=== PATIENT | male | born 1965 | race Caucasian/White ===

== ENCOUNTER 2017-06-09 13:46 | Emergency (ER) | payer BC ==
--- NOTE | 2017-06-09 14:27 | ER Document Report ---
ED Medical Screen (RME) - General Chief Complaint: Chest Pain > 30 Stated Complaint: CHEST DISCOMFORT,SHORTNESS OF BREATH Time Seen by Provider: 06/09/17 14:16 Notes: This 51-year-old male patient comes emergency room complaining of chest discomfort, shortness of breath worse with exertion, and elevated blood pressure. He reports onset last Thursday 1 week ago of waking up with sore throat, congestion, sinus discomfort, and some shortness of breath. He saw his primary care provider to have blood work done. He went back today for follow-up and was found to have elevated blood pressure and worsening shortness of breath so he referred to the emergency room. He states his normal blood pressure is in the 140-145/92 range, but it has been running higher recently. He has been taking DayQuil and NyQuil, but none in the last 2 days. Patient denies any lower extremity swelling. He does have a chest x-ray from today and a comparison on a CD with him. I have greeted and performed a rapid initial assessment of this patient. A comprehensive ED assessment and evaluation of the patient, analysis of test results and completion of the medical decision making process will be conducted by additional ED providers. TRAVEL OUTSIDE OF THE [place] IN LAST 30 DAYS: No - Related Data Allergies/Adverse Reactions: No Known Allergies Allergy (Unverified 06/09/17 14:07) Home Medications: Current Home Medications Albuterol Sulfate [Proair Respiclick] 90 mcg IH PRN PRN 06/09/17 [History] Cetirizine HCl [Zyrtec 10 mg Tablet] 1 tab PO DAILY 06/09/17 [History] Fluticasone Propionate [Flovent Diskus] 50 mcg IH DAILY 06/09/17 [History] Hydrochlorothiazide 50 mg PO DAILY 06/09/17 [History] Past Medical History - Social History Chew tobacco use (# tins/day): Yes Frequency of alcohol use: Social Drug Abuse: None Renal/ Medical History: Denies: Hx Peritoneal Dialysis Physical Exam - Vital signs Vitals: Temp Pulse Resp BP Pulse Ox 99.0 F 116 H 18 158/92 H 96 06/09/17 14:01 06/09/17 14:01 06/09/17 14:01 06/09/17 14:01 06/09/17 14:01 Course - Vital Signs Vital signs: Temp Pulse Resp BP Pulse Ox 99.0 F 116 H 18 158/92 H 96 06/09/17 14:01 06/09/17 14:01 06/09/17 14:01 06/09/17 14:01 06/09/17 14:01
[2017-06-09 14:54] LABS: ABSOLUTE BASOPHILS # (AUTO) 0.1 10^3/uL (0.0-0.2); ABSOLUTE EOSINOPHILS # (AUTO) 0.1 10^3/uL (0.0-0.6); ABSOLUTE LYMPHOCYTES (AUTO) 1.5 10^3/uL (0.5-4.7); ABSOLUTE MONOCYTES (AUTO) 0.5 10^3/uL (0.1-1.4); ABSOLUTE NEUT (AUTO) 5.6 10^3/uL (1.7-8.2); BASOPHILS % (AUTO) 0.7 % (0-2); EOSINOPHILS % (AUTO) 1.2 % (0-6); HEMATOCRIT 51.7 % (37.9-51.0); HEMOGLOBIN 17.5 g/dL (13.5-17.0); HGB HCT DIFFERENCE 0.8; LYMPHOCYTES % (AUTO) 19.6 % (13-45); MEAN CORPUSCULAR HEMOGLOBIN 28.2 pg (27.0-33.4); MEAN CORPUSCULAR HGB CONC 33.9 g/dL (32.0-36.0); MEAN CORPUSCULAR VOLUME 83 fl (80-97); MONOCYTES % (AUTO) 6.8 % (3-13); RED CELL DISTRIBUTION WIDTH 15.1 % (11.5-14.0); SEGMENTED NEUTROPHILS % (AUTO) 71.7 % (42-78); WHITE BLOOD COUNT 7.8 10^3/uL (4.0-10.5)
[2017-06-09 14:55] LABS: APPEARANCE,URINE CLEAR; BILIRUBIN,URINE NEGATIVE (NEGATIVE); GLUCOSE, URINE NEGATIVE (NEGATIVE); KETONES,URINE NEGATIVE (NEGATIVE); LEUKOCYTE ESTERASE,URINE NEGATIVE (NEGATIVE); NITRITE,URINE NEGATIVE (NEGATIVE); PROTEIN,URINE NEGATIVE (NEGATIVE); URINE SPECIFIC GRAVITY 1.004; UROBILINOGEN,URINE NEGATIVE mg/dL (<2.0)
[2017-06-09 15:15] LABS: ALANINE AMINOTRANSFERASE 47 U/L (21-72); ALKALINE PHOSPHATASE 67 U/L (38-126); ANION GAP 11 (5-19); ASPARTATE AMINO TRANSFERASE 27 U/L (17-59); BILIRUBIN,DIRECT 0.5 mg/dL (0.0-0.4); BILIRUBIN,TOTAL 0.9 mg/dL (0.2-1.3); BLOOD UREA NITROGEN 12 mg/dL (7-20); CALCIUM 10.2 mg/dL (8.4-10.2); CARBON DIOXIDE 26 mmol/L (22-30); CHLORIDE 104 mmol/L (98-107); CREATINE KINASE 133 U/L (55-170); CREATININE RESULT 1.11 mg/dL (0.52-1.25); GLUCOSE 142 mg/dL (75-110); POTASSIUM 3.5 mmol/L (3.6-5.0); SODIUM 141.4 mmol/L (137-145); TOTAL PROTEIN 6.8 g/dL (6.3-8.2)
[2017-06-09 15:27] LABS: CREATINE KINASE MB 1.07 ng/mL (<4.55)
[2017-06-09 15:29] LABS: TROPONIN I < 0.012 ng/mL
--- NOTE | 2017-06-09 21:20 | ER Document Report ---
ED General - General Chief Complaint: Chest Pain > 30 Stated Complaint: CHEST DISCOMFORT,SHORTNESS OF BREATH Time Seen by Provider: 06/09/17 14:16 TRAVEL OUTSIDE OF THE [place] IN LAST 30 DAYS: No - HPI Notes: Patient is a 51-year-old male with a history of hypertension and GERD who presents the ED complaining of feeling short of breath and intermittent chest pressure more so over the last 2 days, but did have a URI illness last week. Patient states that he is ambulatory without any worsening symptoms or dyspnea on exertion. Patient states that the discomfort does not radiate and is located to the left side of the chest primarily. Pt denies any prolonged travel , calf pain, immobilization, recent trauma/surgery, hormone use, smoking, DM, CA , prev h/o DVT/PE. Patient states that nothing worsens or improves the discomfort that he is aware of. Pt denies any chest 'pain.' Denies any headache , fever, neck pain, URI, sore throat, chest pain, palpitations, syncope, cough, wheeze, dyspnea, abdominal pain, nausea/vomiting/diarrhea, dysuria, hematuria, diaphoresis, dizziness, or rash. Recent neg stress test about 5mos ago. - Related Data Allergies/Adverse Reactions: No Known Allergies Allergy (Unverified 06/09/17 14:07) Home Medications: Current Home Medications Albuterol Sulfate [Proair Respiclick] 90 mcg IH PRN PRN 06/09/17 [History] Cetirizine HCl [Zyrtec 10 mg Tablet] 1 tab PO DAILY 06/09/17 [History] Fluticasone Propionate [Flovent Diskus] 50 mcg IH DAILY 06/09/17 [History] Hydrochlorothiazide 50 mg PO DAILY 06/09/17 [History] Past Medical History - Social History Smoking Status: Former Smoker Chew tobacco use (# tins/day): Yes Frequency of alcohol use: Social Drug Abuse: None Family History: Reviewed & Not Pertinent Patient has suicidal ideation: No Patient has homicidal ideation: No Renal/ Medical History: Denies: Hx Peritoneal Dialysis Review of Systems - Review of Systems Notes: REVIEW OF SYSTEMS: CONSTITUTIONAL : Denies fever, chills, or sweats. Denies recent illness. EENT: Denies eye, ear, throat, or mouth pain or symptoms. Denies nasal or sinus congestion or discharge. Denies throat, tongue, or mouth swelling or difficulty swallowing. CARDIOVASCULAR: Denies chest pain. Denies palpitations or racing or irregular heart beat. Denies ankle edema. RESPIRATORY: Denies cough, cold, or chest congestion. see hpi. GASTROINTESTINAL: Denies abdominal pain or distention. Denies nausea, vomiting , or diarrhea. Denies blood in vomitus, stools, or per rectum. Denies black, tarry stools. Denies constipation. GENITOURINARY: Denies difficulty urinating, painful urination, burning, frequency, blood in urine, or discharge. MUSCULOSKELETAL: Denies back or neck pain or stiffness. Denies joint pain or swelling. SKIN: Denies rash, lesions or sores. NEUROLOGICAL: Denies dizziness or lightheadedness. Denies headache. Denies problems with gait or speech. Denies sensory loss, numbness, or tingling. Denies seizures. PSYCHIATRIC: Denies anxiety or stress. Denies depression, suicidal ideation, or homicidal ideation. ALL OTHER SYSTEMS REVIEWED AND NEGATIVE. Dictation was performed using [employer] voice recognition software Physical Exam - Vital signs Vitals: Temp Pulse Resp BP Pulse Ox 99.0 F 116 H 18 158/92 H 96 06/09/17 14:01 06/09/17 14:01 06/09/17 14:01 06/09/17 14:01 06/09/17 14:01 Notes: PHYSICAL EXAMINATION: GENERAL: Well-appearing, well-nourished and in no acute distress. A&Ox4 HEAD: Atraumatic, normocephalic. EYES: Pupils equal round and reactive to light, extraocular movements intact, sclera anicteric, conjunctiva are normal. ENT: Nares patent and without discharge. oropharynx clear without exudates. No tonsilar hypertrophy or erythema. Moist mucous membranes. NECK: Normal range of motion, supple without lymphadenopathy. Chest: Non-tender. No flail chest. Equal rise/fall LUNGS: Breath sounds clear to auscultation bilaterally and equal. No wheezes rales or rhonchi. HEART: Regular rate and rhythm without murmurs, rubs, gallops. ABDOMEN: Soft, nontender, nondistended abdomen. No guarding, no rebound. No masses appreciated. Normal bowel sounds present. No CVA tenderness bilaterally. Musculoskeletal: FROM to passive/active. Strength 5+/5. Allen neg. No calf swelling or erythema. Extremities: No cyanosis, clubbing, or edema b/l. Peripheral pulses 2+. Capillary refill less than 3 seconds. NEUROLOGICAL: Normal speech, normal gait. Normal sensory, motor exams PSYCH: Normal mood, normal affect. SKIN: Warm, Dry, normal turgor, no rashes or lesions noted. Course - Re-evaluation Re-evalutation: 06/09/17 22:30 Patient is an afebrile, well-hydrated, 51-year-old male with intermittent chest pressure unspecified. Vitals are stable. PE is otherwise unremarkable. CBC, CMP, cardiac enzymes/EKG 2, magnesium, BNP, chest x-ray unremarkable for any acute pathology. Patient has a PERC score of 0, well's score of 0, and a heart score of 2. Pt also had a recent negative stress test per pt. Pt given an ambulatory challenge and did not have any worsening or debilitating symptoms. Low suspicion for any ACS, PE, pneumothorax, pericarditis, dissection, respiratory compromise, severe dehydration, sepsis, meningitis, or other systemic emergent condition at this time. Patient is aware that his condition can change from initial presentation and he needs to monitor symptoms closely and seek medical attention for any acute changes. Recommend conservative measures for symptoms. Recheck with your PCM in 3-5 days. Return to the ED with any worsening/concerning symptoms otherwise as reviewed in discharge. Patient is in agreement. - Vital Signs Vital signs: Temp Pulse Resp BP Pulse Ox 97.5 F 91 18 136/92 H 98 06/09/17 20:40 06/09/17 20:40 06/09/17 22:00 06/09/17 22:01 06/09/17 22:01 - Laboratory Result Diagrams: 06/09/17 14:40 06/09/17 14:40 Laboratory results interpreted by me: 06/09/17 06/09/17 14:40 14:40 RBC 6.20 H Hgb 17.5 H Hct 51.7 H RDW 15.1 H Potassium 3.5 L Glucose 142 H Direct Bilirubin 0.5 H Discharge - Discharge Clinical Impression: Chest tightness or pressure Condition: Stable Disposition: HOME, SELF-CARE Instructions: Chest Pain of Unclear Cause ([facility]) Additional Instructions: Maintain adequate fluid intake tylenol/ibuprofen as needed Monitor symptoms closely Humidified air may help for any cough F/u: with your PCM in 3-5 days for a recheck Consider consult with Cardiology. Return to the ED with any fever, worsening pain, chest pain, palpitations, syncope, worsening SANTIAGO, neck pain/stiffness, shortness of breath, wheezing, drooling, trouble swallowing/breathing, abdominal pain, n/v/d, rash, diaphoresis , dizziness, or worsening/concerning symptoms otherwise. Forms: Elevated Blood Pressure Referrals: TANJA VANEGAS FNP-C [Primary Care Provider] - Follow up in 3-5 days
--- NOTE | 2017-06-09 21:35 | RADIOLOGY REPORT (SQ) ---
EXAM DESCRIPTION: CHEST PA/LAT COMPLETED DATE/TIME: 06/09/2017 9:23 pm REASON FOR STUDY: chest pain COMPARISON: None. EXAM PARAMETERS: NUMBER OF VIEWS: two views TECHNIQUE: Digital Frontal and Lateral radiographic views of the chest acquired. RADIATION DOSE: NA LIMITATIONS: none FINDINGS: LUNGS AND PLEURA: Mild basilar atelectasis/ scarring. No infiltrates, masses or pneumotho rax. No pleural effusion. MEDIASTINUM AND HILAR STRUCTURES: No masses or contour abnormalities. HEART AND VASCULAR STRUCTURES: Heart normal size. No evidence for failure. BONES: No acute findings. HARDWARE: None in the chest. OTHER: No other significant finding. IMPRESSION: NO SIGNIFICANT RADIOGRAPHIC FINDING IN THE CHEST. TECHNICAL DOCUMENTATION: JOB ID: [id number] [employer]- All Rights Reserved
[2017-06-09 22:49] VITALS: BP 129/89
--- NOTE | 2017-06-09 23:02 | EKG REPORT ---
SEVERITY:- ABNORMAL ECG - SINUS RHYTHM BORDERLINE LEFT AXIS DEVIATION ABNRM R PROG, CONSIDER ASMI OR LEAD PLACEMENT : Confirmed by: Martha Sams 09-Jun-2017 23:01:44
--- NOTE | 2017-06-09 23:04 | EKG REPORT ---
SEVERITY:- OTHERWISE NORMAL ECG - SINUS TACHYCARDIA BORDERLINE LEFT AXIS DEVIATION : Confirmed by: Martha Sams 09-Jun-2017 23:04:03
== END 2017-06-09 22:45 | disposition home or self-care (01) ==
LOC: ER 13:46
DX: R07.89 Other chest pain (principal); R06.02 Shortness of breath; I10 Essential (primary) hypertension; Z87.891 Personal history of nicotine dependence
CPT/HCPCS: 36415; 71020; 80053; 81001; 82550; 82553; 83735; 83880; 84484; 85025; 93005; 93010; 99285

== ENCOUNTER 2019-11-25 15:10 | Emergency (ER) | payer BC ==
--- NOTE | 2019-11-25 16:00 | ER Document Report ---
ED Medical Screen (RME) - General Chief Complaint: Leg Swelling Stated Complaint: RIGHT LEG PAIN,SWELLING,REDNESS Time Seen by Provider: 11/25/19 15:59 Primary Care Provider: TANJA VANEGAS FNP-C [Primary Care Provider] - Follow up as needed Mode of Arrival: Ambulatory Information source: Patient Notes: 54-year-old male presented to ED for complaint of right leg swelling. He states he has been swelling off and on for about a month. Patient states is not very painful is just kind of feels bruised and sore. He is alert oriented respirations regular and unlabored speaking in full sentences. He states he did have a tele-visit and they told him to come to the emergency room and get checked out. I have greeted and performed a rapid initial assessment of this patient. A comprehensive ED assessment and evaluation of the patient, analysis of test results and completion of medical decision making process will be conducted by an additional ED providers. TRAVEL OUTSIDE OF THE [place] IN LAST 30 DAYS: No - Related Data Allergies/Adverse Reactions: No Known Allergies Allergy (Unverified 06/09/17 14:07) Past Medical History - Social History Chew tobacco use (# tins/day): Yes Frequency of alcohol use: Social - Past Medical History Cardiac Medical History: Reports: Hx Hypertension Renal/ Medical History: Denies: Hx Peritoneal Dialysis GI Medical History: Reports: Hx Gastroesophageal Reflux Disease Psychiatric Medical History: Reports: Hx Depression Physical Exam - Vital signs Vitals: Temp Pulse Resp BP Pulse Ox 98.6 F 85 21 H 136/76 H 96 11/25/19 15:16 11/25/19 15:16 11/25/19 15:16 11/25/19 15:16 11/25/19 15:16 Course - Vital Signs Vital signs: Temp Pulse Resp BP Pulse Ox 98.6 F 85 21 H 136/76 H 96 11/25/19 15:45 11/25/19 15:16 11/25/19 15:16 11/25/19 15:16 11/25/19 15:16 Doctor's Discharge - Discharge Referrals: TANJA VANEGAS FNP-C [Primary Care Provider] - Follow up as needed
[2019-11-25 17:46] LABS: ABSOLUTE BASOPHILS # (AUTO) 0.1 10^3/uL (0.0-0.2); ABSOLUTE EOSINOPHILS # (AUTO) 0.1 10^3/uL (0.0-0.6); ABSOLUTE MONOCYTES (AUTO) 0.8 10^3/uL (0.1-1.4); ABSOLUTE NEUT (AUTO) 6.4 10^3/uL (1.7-8.2); BASOPHILS % (AUTO) 0.6 % (0-2); EOSINOPHILS % (AUTO) 1.1 % (0-6); HEMATOCRIT 50.8 % (37.9-51.0); HEMOGLOBIN 17.3 g/dL (13.5-17.0); LYMPHOCYTES % (AUTO) 21.5 % (13-45); MEAN CORPUSCULAR HEMOGLOBIN 28.3 pg (27.0-33.4); MEAN CORPUSCULAR VOLUME 83 fl (80-97); MONOCYTES % (AUTO) 8.8 % (3-13); PLATELET COUNT 176 10^3/uL (150-450); RED BLOOD COUNT 6.09 10^6/uL (4.35-5.55); RED CELL DISTRIBUTION WIDTH 13.3 % (11.5-14.0); TOTAL CELLS COUNTED % (AUTO) 100 %; WHITE BLOOD COUNT 9.5 10^3/uL (4.0-10.5)
--- NOTE | 2019-11-25 17:53 | ER Document Report ---
ED General - General Chief Complaint: Leg Swelling Stated Complaint: RIGHT LEG PAIN,SWELLING,REDNESS Time Seen by Provider: 11/25/19 15:59 Primary Care Provider: TANJA VANEGAS FNP-C [Primary Care Provider] - Follow up as needed Mode of Arrival: Ambulatory TRAVEL OUTSIDE OF THE [place] IN LAST 30 DAYS: No - HPI Notes: 54-year-old female history of hypertension presents with intermittent right lower leg swelling for past month. Patient says he noticed it becoming red over his medial lower leg and distal medial thigh over the past day with slight ten derness. No medical evaluation for for now. Patient also endorses having few episodes of lightheadedness when standing that then resolve spontaneously after a few seconds. Patient uses dip. Patient denies any exertional symptoms, chest pain, shortness of breath, syncope, fever, vomiting, abdominal pain, blood in lab/black-red blood per rectum/diarrhea, cardiac history, DVT PE/hypercoag history in self or family, cancer history, recent travel/surgery/immobilization - Related Data Allergies/Adverse Reactions: No Known Allergies Allergy (Unverified 06/09/17 14:07) Past Medical History - General Information source: Patient - Social History Smoking Status: Never Smoker Chew tobacco use (# tins/day): Yes Frequency of alcohol use: Social Family History: Reviewed & Not Pertinent Patient has homicidal ideation: No - Past Medical History Cardiac Medical History: Reports: Hx Hypertension Renal/ Medical History: Denies: Hx Peritoneal Dialysis GI Medical History: Reports: Hx Gastroesophageal Reflux Disease Psychiatric Medical History: Reports: Hx Depression Review of Systems - Review of Systems Notes: REVIEW OF SYSTEMS: CONSTITUTIONAL : Denies fever, chills, or sweats. EENT: Denies recent cold/sinus symptoms, denies throat pain CARDIOVASCULAR: Denies chest pain, +BRYON RESPIRATORY: Denies cough, denies shortness of breath. GASTROINTESTINAL: Denies abdominal pain, nausea/vomiting. GENITOURINARY: Denies difficulty urinating, painful urination. MUSCULOSKELETAL: Denies neck pain, back pain. SKIN: Denies rash or skin lesions. HEMATOLOGIC : Denies easy bruising or bleeding. LYMPHATIC: Denies swollen, enlarged glands. NEUROLOGICAL: Denies headache, denies change in gait. PSYCHIATRIC: Denies anxiety or stress. Physical Exam - Vital signs Vitals: Temp Pulse Resp BP Pulse Ox 98.6 F 85 21 H 136/76 H 96 11/25/19 15:16 11/25/19 15:16 11/25/19 15:16 11/25/19 15:16 11/25/19 15:16 - Notes Notes: PHYSICAL EXAMINATION: GENERAL: Well-appearing, well-nourished, pleasant talkative middle-aged man sitting up in stretcher with no signs of discomfort HEAD: Atraumatic, normocephalic. EYES: Pupils equal round and appropriate constriction, sclera anicteric, conjunctiva are normal. ENT: nares patent, moist mucous membranes. NECK: Normal range of motion, supple without lymphadenopathy LUNGS: Breath sounds clear to auscultation bilaterally and equal. No wheezes rales or rhonchi. HEART: Regular rate and rhythm without murmurs ABDOMEN: Soft, nontender, no guarding, no masses, no CVAT EXTREMITIES: Normal range of motion. No cyanosis. Increased redness and warmth in area over proximal lower leg and distal medial thigh on right side without any purulence or areas of fluctuance, no appreciable edema. NEUROLOGICAL: Awake, alert, conversing appropriately, moves all extremities spontaneously. PSYCH: Normal mood, normal affect. SKIN: Warm, Dry, normal turgor. Course - Re-evaluation Re-evalutation: 11/25/19 17:52 Will rule out DVT with ultrasound, given patient few episodes of lightheadedness most likely secondary to use of tobacco will obtain EKG troponin and d-dimer to rule out ACS and PE, patient is low risk for PE and dimer rule out is appropriate. We will continue to monitor pending ED work-up. Please discharge home with antibiotics for nonpurulent cellulitis and PCP follow-up. 11/25/19 19:40 Patient found to have large SVT and saphenous on ultrasound. Given the recent literature regarding the risk of migration and propagation of large SVT patient is appropriate for anticoagulation. Discussed with patient implications of SVT and the importance of following up with primary doctor and heme onc for possible causes of SVT including possible underlying malignancy. Gave 1.5 jose manuel per cake dose of Lovenox in the ED so that patient can obtain Lovenox from pharmacy and time for evening dose tomorrow. Printed out results of all imaging and discussed them with the patient including lung scarring, possible hepatic steatosis, which she will follow-up with his PCP. Gave patient extensive return to ED precautions which he demonstrated understanding of. - Vital Signs Vital signs: Temp Pulse Resp BP Pulse Ox 98.6 F 85 21 H 136/76 H 96 11/25/19 15:45 11/25/19 15:16 11/25/19 15:16 11/25/19 15:16 11/25/19 15:16 - Laboratory Result Diagrams: 11/25/19 17:18 11/25/19 17:18 Laboratory results interpreted by me: 11/25/19 11/25/19 11/25/19 17:18 17:18 17:18 RBC 6.09 H Hgb 17.3 H D-Dimer 1.17 H Sodium 135.8 L - EKG Interpretation by Me Additional EKG results interpreted by me: 11/25/19 19:04 Heart rate 75, sinus arrhythmia, no significant ST elevations or depressions, QTC 456 Discharge - Discharge Clinical Impression: Venous thrombosis of extremity Condition: Stable Disposition: HOME, SELF-CARE Additional Instructions: Superficial Phlebitis You have superficial phlebitis. This is an inflammation of the small veins just under the skin. The phlebitis causes redness, warmth, and tenderness of the involved area. There is no evidence of pulmonary embolism (blood clots travelling to the lung). The more serious type of phlebitis occurs when the large deep veins become clotted. Treatment usually is elevation of the involved extremity, local moist heat several times daily, and aspirin (or an antiinflammatory medication). It will take several days -- sometimes even a couple of weeks -- for the condition to get better. If you develop worsening swelling or pain in the extremity, chest pain or shortness of breath, you should call the doctor or go to the hospital emergency room immediately. Because of recent evidence and medical research that large blood clots in the superficial veins of the legs may lead to blood clots in the deep veins of the legs or blood clots in the lungs or other parts of the body. Because of this new evidence you are being treated with blood thinner lovenox. You have been given a dose of Lovenox in the ED that will cover you until tomorrow evening at 7 PM. At that time you should start giving yourself an injection of Lovenox every 12 hours. Call your primary doctor tomorrow and ask for referral to a community worker to further investigate why you are having this blood clot and whether they would like you to continue the anticoagulation and for how long. Given your history of tobacco use you are risk for certain cancers that can cause blood clots and you should discuss this with your primary doctor and community worker. Your imaging also showed some lung scarring and possible fatty liver which she should also discuss with your primary doctor. If you are feeling worse at any time including worsening pain, worsening swelling, chest pain, shortness of breath, fainting, dizziness, abdominal pain, any signs of bleeding, he should return to the emergency department immediately. Referrals: TANJA VANEGAS FNP-C [Primary Care Provider] - Follow up as needed
[2019-11-25 17:58] LABS: PROTHROMBIN TIME 12.1 SEC (11.4-15.4)
[2019-11-25 17:59] LABS: PARTIAL THROMBOPLASTIN TIME 28.4 SEC (23.5-35.8)
[2019-11-25 18:05] LABS: ALBUMIN 3.7 g/dL (3.5-5.0); ALKALINE PHOSPHATASE 65 U/L (38-126); ANION GAP 5 (5-19); ASPARTATE AMINO TRANSFERASE 25 U/L (17-59); BILIRUBIN,TOTAL 0.3 mg/dL (0.2-1.3); BLOOD UREA NITROGEN 17 mg/dL (7-20); CALCIUM 10.1 mg/dL (8.4-10.2); CARBON DIOXIDE 27 mmol/L (22-30); CHLORIDE 104 mmol/L (98-107); GLUCOSE 87 mg/dL (75-110); POTASSIUM 3.9 mmol/L (3.6-5.0); TOTAL PROTEIN 6.5 g/dL (6.3-8.2)
--- NOTE | 2019-11-25 18:21 | RADIOLOGY REPORT (SQ) ---
EXAM DESCRIPTION: CHEST 2 VIEWS IMAGES COMPLETED DATE/TIME: 11/25/2019 6:10 pm REASON FOR STUDY: lightheadedness leg pain htn COMPARISON: 06/09/2017 EXAM PARAMETERS: NUMBER OF VIEWS: two views TECHNIQUE: Digital Frontal and Lateral radiographic views of the chest acquired. RADIATION DOSE: NA LIMITATIONS: none FINDINGS: LUNGS AND PLEURA: Chronic elevation of the right hemidiaphragm. Stable mild right lung b ase atelectasis or scarring. No acute pulmonary consolidation. No pneumothorax or pleural effusion. MEDIASTINUM AND HILAR STRUCTURES: No masses or contour abnormalities. HEART AND VASCULAR STRUCTURES: Heart normal size. No evidence for failure. BONES: No acute findings. HARDWARE: None in the chest. OTHER: No other significant finding. IMPRESSION: 1. No significant interval changes since the prior examination dated 06/09/2017. Chron ic changes in the right lung. No acute findings. TECHNICAL DOCUMENTATION: JOB ID: [id number] 2010 [employer]- All Rights Reserved Reading location - IP/workstation name: [email or web address]
[2019-11-25] MEDS ORDERED: ENOXAPARIN SODIUM INJ 150 MG/1 ML DISP.SYRIN SUBCUT ONE (18:51)
--- NOTE | 2019-11-25 19:15 | RADIOLOGY REPORT (SQ) ---
EXAM DESCRIPTION: CTA CHEST IMAGES COMPLETED DATE/TIME: 11/25/2019 6:53 pm REASON FOR STUDY: lightheadedness +DVT COMPARISON: None. TECHNIQUE: CT scan of the chest performed using helical scanning technique with dynamic intravenous contrast injection. Images reviewed with lung, soft tissue and bone windows. Reconstructed coronal and sagittal MPR images reviewed. Additional 3 dimensional post-processing performed to develop Maximal Intensity Projection images (MN P). All images stored on PACS. All CT scanners at this facility use dose modulation, iterative reconstruction, and/or weight based d osing when appropriate to reduce radiation dose to as low as reasonably achievable (ALARA). [facility]: Dose Right [facility]: CareDose [facility]: Dose Right [facility]: Teradose 4D [facility]: [employer] CONTRAST TYPE AND DOSE: contrast/concentration: Isovue 350.00 mg/ml; Total Contrast Delivered: 75.0 ml; Total Saline Delivered: 80.0 ml Contrast bolus adequate for pulmonary arteries and aorta. RENAL FUNCTION: BUN 17 creatinine 1.11 RADIATION DOSE: CT Rad equipment meets quality standard of care and radiation dose reduction techniq ues were employed. CTDIvol: 33.1 - 37.9 mGy. DLP: 1490 mGy-cm. . LIMITATIONS: None. FINDINGS: LUNGS AND PLEURA: No masses, infiltrates, or pneumothorax. No pleural effusions or pleura l calcifications. AORTA AND GREAT VESSELS: No aneurysm. No dissection. HEART: No pericardial effusion. No significant coronary artery calcifications. PULMONARY ARTERIES: No emboli visualized in the main pulmonary arteries or the segmental branches. HILAR AND MEDIASTINAL STRUCTURES: No identified masses or abnormal nodes. HARDWARE: None in the chest. UPPER ABDOMEN: Hypoattenuation of the liver. THYROID AND OTHER SOFT TISSUES: No masses. No adenopathy. BONES: No acute or significant finding. 3D MIPS: Confirm above findings. OTHER: No other significant finding. IMPRESSION: There is no pulmonary embolus. There is no aortic aneurysm or dissection. There is aparna e degree of hepatic steatosis. COMMENT: Quality ID # [id number]: Final reports with documentation of one or more dose reduction techniques (e.g., Automated exposure control, adjustment of the mA and/or kV according to patient size, use of iterative reconstruction technique) TECHNICAL DOCUMENTATION: JOB ID: [id number] 2010 [employer]- All Rights Reserved Reading location - IP/workstation name: [email or web address]
--- NOTE | 2019-11-25 19:24 | RADIOLOGY REPORT (SQ) ---
EXAM DESCRIPTION: VENOUS UNILATERAL LOWER IMAGES COMPLETED DATE/TIME: 11/25/2019 7:13 pm REASON FOR STUDY: right leg swelling sore COMPARISON: None. TECHNIQUE: Dynamic and static horton scale and color images acquired of the right leg venous system. S elected spectral images acquired with additional compression and augmentation maneuvers. The contrala teral common femoral vein and saphenofemoral junction were also imaged. Images stored on PACS. LIMITATIONS: None. FINDINGS: COMMON FEMORAL: Normal phasicity, compression and augmentation. No visualized echogenic ma terial on horton scale. No defects on color images. FEMORAL: Normal compression and augmentation. No visualized echogenic material on horton scale. No defe cts on color images. POPLITEAL: Normal compression, augmentation. No visualized echogenic material on horton scale. No defec ts on color images. CALF VESSELS: Normal compression, augmentation. No visualized echogenic material on horton scale. No de fects on color images. GSV and SSV: There is acute thrombus in the greater saphenous vein from mid thigh to slightly below t he knee. ANY DEEP VENOUS INSUFFICIENCY: Not evaluated. ANY EVIDENCE OF POPLITEAL CYST: No. OTHER: No other significant finding. CONTRALATERAL COMMON FEMORAL VEIN AND SAPHENOFEMORAL JUNCTION: Normal phasicity, compression and augmentation. No visualized echogenic material on horton scale. No de fects on color images. IMPRESSION: Acute SVT in the greater saphenous vein. TECHNICAL DOCUMENTATION: JOB ID: [id number] 2010 [employer]- All Rights Reserved Reading location - IP/workstation name: [email or web address]
[2019-11-25 20:14] VITALS: BP 127/92
--- NOTE | 2019-11-25 21:27 | EKG REPORT ---
SEVERITY:- OTHERWISE NORMAL ECG - SINUS RHYTHM PACS : Confirmed by: Indra Richter MD 25-Nov-2019 21:27:28
== END 2019-11-25 20:14 | disposition home or self-care (01) ==
LOC: ER 15:10
DX: I82.811 Embolism and thrombosis of superficial veins of right lower extremity (principal); L03.90 Cellulitis, unspecified; I49.9 Cardiac arrhythmia, unspecified; R42 Dizziness and giddiness; J98.4 Other disorders of lung; I10 Essential (primary) hypertension; Z72.0 Tobacco use
CPT/HCPCS: 93005; 99284; 96372; 36415; 85025; 85610; 85730; 80053; 84484; 85379; 93971; 71046; 71275; 93010; J1650